=== PATIENT | male | born 1945 | race Caucasian/White ===

== ENCOUNTER 2016-08-27 | Outpatient (CLI) | payer MEDICARE | END 2016-08-27 19:19 | disposition short-term general hospital (02) | CPT/HCPCS: A0425; A0427 ==

== ENCOUNTER 2018-10-07 12:04 | Outpatient (CLI) | payer MEDICARE | END 2018-10-07 12:05 | disposition EMS.NT | LOC: EMS 12:04 | PROVIDERS: ATTEND Surgery | DX: M54.5 Low back pain (principal); V48.0XXA Car driver injured in noncollision transport accident in nontraffic accident, initial encounter; Y92.008 Other place in unspecified non-institutional (private) residence as the place of occurrence of the external cause ==